=== PATIENT | female | born 1940 | race Caucasian/White ===

== ENCOUNTER 2020-03-03 16:40 | Emergency (ER) | payer MEDICARE, MEDICAID, SELFPAY ==
[2020-03-03 16:42] VITALS: BP 102/65; PULSE 64; RESP 15; TEMP 36.8; O2SAT 94; BMI 20.2
--- NOTE | 2020-03-03 16:43 | CT_ITS ---
STUDY: CT BRAIN WITHOUT CONTRAST REASON FOR EXAM: Female, 79 years old. Agitation RADIATION DOSAGE (If Supplied By Facility): CTDIvol = ( 60.81 ) mGy, DLP = ( 1044.28 ) mGycm TECHNIQUE: Transaxial CT imaging of the brain was performed without administration of intravenous contrast material. Individualized dose optimization techniques were used for this CT. COMPARISON: None. FINDINGS: There is no acute bleed or infarct. There are chronic ischemic and atrophic changes. The ventricles are normal in configuration. There is no hydrocephalus. The visualized paranasal sinuses are clear. The mastoid air cells are well aerated. There is no skull fracture. CT/Brain/Head without Contrast IMPRESSION: No acute intracranial abnormality. Chronic ischemic and atrophic changes. Electronically Signed: Alexy Tan, at 18:19 EDT Tel , Service support ,
--- NOTE | 2020-03-03 16:45 | EKG12_ITS ---
Test Reason : Blood Pressure : / mmHG Vent. Rate : 074 BPM Atrial Rate : 074 BPM P-R Int : 154 ms QRS Dur : 082 ms QT Int : 414 ms P-R-T Axes : 043 019 057 degrees QTc Int : 459 ms Normal sinus rhythm Normal ECG Confirmed by NAHOMI OWEN, JANAY ([id number]), research editor PATRICK WATT ([id number]) on 03/11/2020 12:13:56 PM Referred By: ES Confirmed By:SHAHLA COMER MD
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
--- NOTE | 2020-03-03 16:55 | CM.ED ---
Social Work Consult: Mental Health Informant: Dr. Vega Per nursing staff patient from [facility] and has been accepted at [facility] pending medical clearance. This psychologist social attempted to speak with patient in room. Patient is a poor historian. Patient currently not sure where patient is located. This psychologist social attempting to orient patient. Patient does not respond to questions. Patient pleasantly confused. Telephone call to Erica Cruz. Erica confirms that patient has been accepted at [facility] pending medical clearance. Erica reporting to have made direct referral to [facility] and Crisis is not involved in the case. Erica reports that patient was agitated today, yelling at staff, wondering, and attempted to elope. Erica reports that patient POA for health care is patient daughter, Tanja Fishman. Telephone call to Tanja Agrawal confirms to be POW for patient. Tanja is agreeable to transfer to [facility] for stabilization. Tanja reports to have been speaking with Nancy and is updated on current series of events. This psychologist social explaining referral process with Tanja. Tanja voicing understanding. Support and active listening provided. Updated medical team on above. Will continue to follow. PLAN: Complete placement to [facility] pending medical clearance. Selvin TORRES, DAVI
[2020-03-03 17:18] LABS: Absolute Lymphocyte Count 2.31 X10^3/uL (0.83-4.51); Basophil# 0.08 X10^3/uL; Eosinophil# 0.55 X10^3/uL; Eosinophils% 7.2 % (0-5); Hematocrit 37.7 % (37-47); Hemoglobin 11.9 g/dL (12.0-15.0); Lymphocyte # 2.31 X10^3/ul (4.0); Lymphocyte % 30.3 % (19-41); Mean Corp Hgb Conc 31.6 g/dL (32-36); Mean Corpuscular Hgb 28.4 pg (27.0-32.0); Mean Platelet Vol. 10.9 fl (6.2-12.0); Monocyte# 0.64 X10^3/uL; Monocyte% 8.4 % (0-10); NRBC Flagged by Analyzer 0 % (0-5); Neutrophil # 3.98 X10^3/uL (2.7-7.7); Neutrophil % 52.2 % (47-70); Platelet Count 195 K/mm3 (150-450); RBC Distribution Width CV 13.5 % (11.6-14.6); Red Blood Count 4.19 M/mm3 (4.2-5.4); White Blood Count 7.6 K/mm3 (4.4-11.0)
[2020-03-03 17:28] LABS: Bacteria 0 SEEN /hpf (None Seen); Red Blood Cells-Urine 0 SEEN /hpf (0-5); Squamous Epithelial Cells - UA 0 SEEN /hpf (5-10)
[2020-03-03 17:31] LABS: Color, Urine Yellow (Yellow); Glucose, Dipstick Normal (Normal); Ketone-Dipstick 5 mg/dl (Negative); Leukocyte Esterase-Dipstick 25 /ul (Negative); Nitrite-Dipstick Negative (Negative); Occult Blood-Urine 10 /ul (Negative); Protein-Dipstick 30 mg/dl (Negative); Specific Gravity, Urine 1.015 (1.002-1.030); Urine Clarity Clear (Clear); Urine Urobilinogen 1 mg/dl (Normal)
[2020-03-03 17:36] LABS: ALB/GLOB Ratio 1.1 RATIO (0.9-2.4); AST(SGOT) 15 U/L (15-37); Alanine Aminotransfer ALT/SGPT 13 U/L (13-56); Albumin, Serum 3.4 g/dL (3.2-5.0); Alkaline Phosphatase 79 U/L (45-117); Anion Gap 8 (5-15); BUN 38 mg/dL (7-18); BUN/Creat Ratio 38.4 RATIO (10-20); Calcium,Total 9.2 mg/dL (8.5-10.1); Chloride 106 mmol/L (98-107); Creatinine, Serum 0.99 mg/dL (0.55-1.02); EST Glomerular Filtration Rate 57 mL/min (>60); Est Glom Filt Rate - Afr Amer 69 mL/min (>60); Estimated Creatinine Clearance 38.86 ml/min; Globulin 3.2 g/dL (2.2-4.2); Glucose 85 mg/dL (74-106); Potassium 3.8 mmol/L (3.5-5.1); Protein, Total 6.6 g/dL (6.4-8.2); Sodium Level 144 mmol/L (136-145)
[2020-03-03 17:37] LABS: Urine Bilirubin Dipstick 1 mg/dL (Negative)
[2020-03-03 17:40] LABS: Mucous, Urine 1+ /hpf (<or=2+); White Blood Cells 0-5 SEEN /hpf (0-5)
--- NOTE | 2020-03-03 17:42 | RAD_ITS ---
STUDY: X-RAY CHEST REASON FOR EXAM: Female, 79 years old. Chest pain TECHNIQUE: Frontal view of the chest COMPARISON: None. FINDINGS: The lungs are hyperinflated, but clear. There are no pleural effusions. There is no pneumothorax. The heart is normal in size. There are old, healed left-sided rib fractures with deformity of the left chest wall. RAD/Chest 1 View (Portable) IMPRESSION: No acute thoracic pathology. Electronically Signed: Alexy Tan, at 18:23 EDT Tel , Service support ,
[2020-03-03 18:58] VITALS: RESP 16
--- NOTE | 2020-03-03 19:00 | ED.RN ---
CALLED CRISIS TO START THE MHC PROCESS WITH THEM, WAITING FOR A CALL BACK
[2020-03-03 19:19] VITALS: BP 123/76; PULSE 72; RESP 16; O2SAT 92
--- NOTE | 2020-03-03 19:20 | CM.ED ---
Social Work Telephone call to [facility]. [facility] confirming to have already accepted patient pending medical clearance. Clinical information faxed to Grzegorz Bustillo. [facility] to call this social work supervisor back with further instruction/questions. Selvin TORRES, DAVI
--- NOTE | 2020-03-03 19:21 | CM.ED ---
Social Work Telephone call to Crisis, clarified that this perinatal social worker is managing placement for patient. Selvin Damon MSW, HAKAN-S
[2020-03-03 20:00] VITALS: RESP 16
--- NOTE | 2020-03-03 20:28 | CM.ED ---
Social Work Telephone call from [facility]. Patient has been accepted by Dr. Walker. Patient to admit to room 112 bed 2. Nurse to call report to [phone]. Telephone call to patient daughter, Tanja. Updated on patient transfer. Tanja voicing approval of transfer. Tanja confirming that [facility] spoke with patient. Telephone call to [place], Updated on patient transfer to [facility]. Updated Medical team on above information, all agreeable to plan. Selvin Damon MSW, DAVI
== END 2020-03-03 21:00 ==
PROVIDERS: Emergency Provider Emergency Medicine; PCP Family Medicine
DX: R45.1 Restlessness and agitation (principal); F03.90 Unspecified dementia, unspecified severity, without behavioral disturbance, psychotic disturbance, mood disturbance, and anxiety
CPT/HCPCS: 70450; 71045; 80053; 81001; 85025; 87635; 93005; 99281; U0002

== ENCOUNTER 2020-03-17 18:43 | Emergency (ER) | payer MEDICARE, MEDICAID, SELFPAY ==
[2020-03-17 18:45] VITALS: BP 174/93; PULSE 75; RESP 18; TEMP 36.3; O2SAT 94; BMI 22.3
--- NOTE | 2020-03-17 18:53 | EKG12_ITS ---
Test Reason : Blood Pressure : / mmHG Vent. Rate : 073 BPM Atrial Rate : 073 BPM P-R Int : 154 ms QRS Dur : 084 ms QT Int : 404 ms P-R-T Axes : 038 030 056 degrees QTc Int : 445 ms Somatic/Motion Artifact Sinus rhythm with Confirmed by CATRACHITA OWEN, BELTRAN ([id number]), editor house organ VALENTINA LR ([id number]) on 03/19/2020 11:12:23 AM Referred By: JUANA Confirmed By:BELTRAN DOMÍNGUEZ MD
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
--- NOTE | 2020-03-17 19:00 | CM.ED ---
SOCIAL WORK Collaboration with Dr. Bustillo. Crisis to evaluate patient once medically cleared. Leigh Ann Castillo, INSIDE SALES REPRESENTATIVE, SUPERVISOR ORDNANCE TRUCK INSTALLATION
[2020-03-17 20:22] LABS: Absolute Lymphocyte Count 2.61 X10^3/uL (0.83-4.51); Absolute Neutrophil Count 5.7 X10^3/uL (2.0-7.7); Basophil# 0.08 X10^3/uL; Basophil% 0.9 % (0-1); Eosinophils% 3.2 % (0-5); Hematocrit 37.9 % (37-47); Hemoglobin 11.9 g/dL (12.0-15.0); Lymphocyte # 2.61 X10^3/ul (4.0); Lymphocyte % 27.8 % (19-41); Mean Corp Hgb Conc 31.4 g/dL (32-36); Mean Corpuscular Hgb 27.7 pg (27.0-32.0); Mean Corpuscular Volume 88.1 fL (81-99); Mean Platelet Vol. 10.8 fl (6.2-12.0); Monocyte# 0.69 X10^3/uL; Monocyte% 7.4 % (0-10); NRBC Flagged by Analyzer 0 % (0-5); Neutrophil # 5.65 X10^3/uL (2.7-7.7); Neutrophil % 60.2 % (47-70); Platelet Count 184 K/mm3 (150-450); RBC Distribution Width CV 14.4 % (11.6-14.6); RBC Distribution Width SD 45.8 fl (35.1-43.9); White Blood Count 9.4 K/mm3 (4.4-11.0)
[2020-03-17 20:26] LABS: Alcohol, Blood (Medical)-Serum < 3.0 mg/dL
[2020-03-17 20:29] LABS: ALB/GLOB Ratio 1.1 RATIO (0.9-2.4); AST(SGOT) 12 U/L (15-37); Alanine Aminotransfer ALT/SGPT 12 U/L (13-56); Albumin, Serum 3.6 g/dL (3.2-5.0); Alkaline Phosphatase 89 U/L (45-117); Anion Gap 4 (5-15); BUN 22 mg/dL (7-18); BUN/Creat Ratio 38.1 RATIO (10-20); Calcium,Total 9.7 mg/dL (8.5-10.1); Chloride 111 mmol/L (98-107); Creatinine, Serum 0.58 mg/dL (0.55-1.02); EST Glomerular Filtration Rate 106 mL/min (>60); Est Glom Filt Rate - Afr Amer 129 mL/min (>60); Estimated Creatinine Clearance 37.45 ml/min; Globulin 3.2 g/dL (2.2-4.2); Glucose 96 mg/dL (74-106); Potassium 3.9 mmol/L (3.5-5.1); Protein, Total 6.8 g/dL (6.4-8.2); Sodium Level 146 mmol/L (136-145)
[2020-03-17 20:31] LABS: Amphetamine Urine VISTA NEGATIVE (<1000 ng/mL); Barbiturate Urine VISTA NEGATIVE (< 200 ng/mL); Benzodiazepine Urine VISTA NEGATIVE (< 200 ng/mL); Cocaine Urine VISTA NEGATIVE (< 300 ng/mL); Ecstacy Urine VISTA NEGATIVE (< 500 ng/mL); Methadone Urine VISTA NEGATIVE (< 300 ng/mL); PCP Urine VISTA NEGATIVE (< 25 ng/mL); THC Urine VISTA NEGATIVE (< 50 ng/mL); Vista UDS pH Range 7
[2020-03-17 20:33] LABS: Color, Urine Yellow (Yellow); Glucose, Dipstick Normal (Normal); Ketone-Dipstick 5 mg/dl (Negative); Leukocyte Esterase-Dipstick 25 /ul (Negative); Mucous, Urine 0 SEEN /hpf (<or=2+); Nitrite-Dipstick Negative (Negative); Occult Blood-Urine 25 /ul (Negative); Protein-Dipstick Negative (Negative); Red Blood Cells-Urine 0 SEEN /hpf (0-5); Squamous Epithelial Cells - UA 0 SEEN /hpf (5-10); Urine Bilirubin Dipstick Negative (Negative); Urine Clarity Clear (Clear); Urine Urobilinogen Normal (Normal)
[2020-03-17 20:34] LABS: Bacteria RARE /hpf (None Seen); White Blood Cells 0-5 SEEN /hpf (0-5)
--- NOTE | 2020-03-17 21:17 | ED.RN ---
PAGED CRISIS TO START THE PROCESS OF SEEING THIS PT, WAITING FOR CALL BACK
--- NOTE | 2020-03-17 21:31 | ED.RN ---
SHANE FROM CRISIS CALLED BACK, REPORT FAXED TO THEIR OFFICE FAX.
[2020-03-17 21:39] VITALS: BP 148/71; PULSE 78; RESP 16; O2SAT 98
--- NOTE | 2020-03-17 23:27 | ED.RN ---
PT UP AND WALKING AROUND ROOM, RUMMAGING WITH ITEMS, FOOD AND SNACKS GIVEN. PT UNDRESSES, DIFFICULT TO REDIRECT AT TIME.
[2020-03-17] MEDS: MELATONIN 3 MG TABLET PO (23:30)
[2020-03-17] MEDS: Divalproex Sodium 250 MG Tablet PO (23:30)
[2020-03-17] MEDS: Memantine Hydrochloride 10 MG Tablet PO (23:30)
[2020-03-18] VITALS (13 sets, daily range): BP systolic 94–172; BP diastolic 64–93; PULSE 74–84; RESP 14–18; O2SAT 95–97
--- NOTE | 2020-03-18 07:54 | NURSING ---
PER ALHAJI, HENRIETTA. [facility] HAS PUT THEIR INTAKE ON HOLD UNTIL THEY TALK TO [place] THIS AM
[2020-03-18] MEDS: Divalproex Sodium 250 MG Tablet PO ×4 (08:57→21:06)
[2020-03-18] MEDS: Memantine Hydrochloride 5 MG Tablet PO (08:57)
--- NOTE | 2020-03-18 11:30 | CM.ED ---
SOCIAL WORK Assisting Crisis with inpatient psych placement for patient. Referral pending at [facility]. Call to [facility], spoke with Christine. Mateusz King, spoke with Nancy earlier and they would not provide information for patient as she is no longer a resident. Christine also reports has not been able to contact patient's daughter. This worker to assist. Call to Nancy, spoke with [employer]. Updated on the above. Worker reports will call [facility] to assist with placement needs. Call to patient's daughter, Tanja. Mateusz Agrawal, will follow up with [facility] this afternoon as she is a teacher and has class until 1:30p. Tanja reports will also be making phone calls to Nancy and the [facility] regarding care home placement after psychiatric stabilization. Call to Christine, with [facility] to update on the above. Christine reports is awaiting information from [facility] at this time and will continue to work on referral. Staff updated on the above. Leigh Ann Castillo, MICROSOFT EXCHANGE ARCHITECT, SANDWICH AND DRINK CART OPERATOR
--- NOTE | 2020-03-18 15:38 | CM.ED ---
SOCIAL WORK Call to [facility] to check on status of referral. Left message, awaiting returned call. Leigh Ann Castillo, EXPRESSIVE MUSIC THERAPIST, COMPUTERIZED TABLE CUTTER
--- NOTE | 2020-03-18 15:49 | CM.ED ---
SOCIAL WORK Received call back from Christine with [facility]. Per Christine, patient has been accepted pending an appropriate discharge plan from facility. Christine states is awaiting call back from Erica with [facility]. Christine reports will update this worker once able to accept patient. Pending placement at [facility] at this time. Leigh Ann Castillo, SOLID WASTE LANDFILL TECHNICIAN, KITCHEN AND BATH DESIGNER
--- NOTE | 2020-03-18 16:00 | CM.ED ---
SOCIAL WORK Attempted to contact Erica with [facility] to discuss placement. Left message, awaiting call back. Leigh Ann Castillo, CARDIOVASCULAR OR NURSE, CHIP DRIER
--- NOTE | 2020-03-18 16:30 | CM.ED ---
SOCIAL WORK Received call from Christine with [facility]. Per Christine, spoke with Erica and was informed [facility] is actively pursuing other nursing facilities for patient upon discharge from [facility]. Christine informed Ombudsman involved. Christine states informed Erica a form must be signed stating [facility] will accept patient back upon discharge if other senior care arrangements have not been made. [facility] waiting on signed form from [facility] at this time. Leigh Ann Castillo, LOAN ORIGINATOR, SENIOR NETWORK ADMINISTRATOR
--- NOTE | 2020-03-18 16:55 | CM.ED ---
SOCIAL WORK Call to [facility] to check on status of form per request of [facility], spoke with Sergio as Erica unavailable. Serigo states Erica is completing form. Leigh Ann Castillo, ACCOUNTANT CONTROLLER, SAS BI DEVELOPER
--- NOTE | 2020-03-18 17:40 | CM.ED ---
SOCIAL WORK Received call from Christine with [facility]. Christine reports form has still not been received from [facility] stating they will accept patient back upon discharge if other arrangements have not been established. Christine states called [facility] and they are to be faxing signed form to [facility] and will also fax form to ER. dental nurseYeni received call from [facility]. Nancy requesting fax number to fax over needed form for [facility]. Leigh Ann Castillo, DESPATCHING AND RECEIVING CLERK, JUNIOR PHP DEVELOPER
--- NOTE | 2020-03-18 18:32 | CM.ED ---
SOCIAL WORK Call from [facility]. Received accepting information as daughter gave approval for transfer and required form from [place] has been received. ETA for transport is 9:45p. Staff updated. Call to Crisis to update on the above. Plan: [facility] for [facility] D. Jonathan, INVESTIGATOR FRAUD, SAFETY PERSON
[2020-03-18] MEDS: Memantine Hydrochloride 10 MG Tablet PO (21:06)
[2020-03-18] MEDS: MELATONIN 3 MG TABLET PO (21:06)
== END 2020-03-18 22:40 ==
PROVIDERS: Emergency Provider Emergency Medicine; PCP Family Medicine
DX: F03.91 Unspecified dementia, unspecified severity, with behavioral disturbance (principal); K21.9 Gastro-esophageal reflux disease without esophagitis; Z79.899 Other long term (current) drug therapy
CPT/HCPCS: 80053; 80307; 80320; 81001; 85025; 87086; 87088; 87635; 93005; 99285; G0480; U0002

== ENCOUNTER 2020-06-05 20:21 | Emergency (ER) | payer MEDICARE, MEDICAID, SELFPAY ==
[2020-06-05 20:24] VITALS: BP 154/126; TEMP 36.6; BMI 20.1
--- NOTE | 2020-06-05 20:32 | ED.DCSUM_ITS ---
History of Present Illness Chief Complaint: Alt LOC Informant: Patient Narrative: 80-year-old female sent from her [facility] for increased agitation and restlessness. Apparently her baseline per other paperwork is confusion. She does have dementia and vascular dementia. There is no report of any falling. Patient is unable to give any history due to being a poor informant. She does not respond to any questions. While interviewing her she repeatedly tries to get out of the bed. Past Medical History - Allergies and Home Meds Allergies/Adverse Reactions: Allergies tetracycline Allergy (Verified 03/17/20 18:54) NEEDS FOLLOW-UP amoxicillin [From Augmentin] Adverse Reaction (Verified 03/17/20 18:54) NEEDS FOLLOW-UP clavulanic acid [From Augmentin] Adverse Reaction (Verified 03/17/20 18:54) NEEDS FOLLOW-UP erythromycin base Adverse Reaction (Verified 03/17/20 18:54) NEEDS FOLLOW-UP hydrocodone Adverse Reaction (Verified 03/17/20 18:54) NEEDS FOLLOW-UP levofloxacin [From Levaquin] Adverse Reaction (Verified 03/17/20 18:54) NEEDS FOLLOW-UP Primary Care Physician: Mir Cabrera MD [Primary Care Provider] - Past Medical History: - - Alzheimer's disease, vascular dementia, diabetes, depression, hyperlipidemia, anxiety, Surgical History: noncontributory Lives: Long-Term Smoking Status: Never smoker Alcohol: None Drugs: None Review of Systems ROS: Unable to Obtain Physical Exam Vital Signs/Narrative: Vital Signs Temp BP 06/05/20 20:24 97.8 F 154/126 H Inital Vital Signs reviewed: Yes General: Well nourished, No Acute Distress Head: Normocephalic, Atraumatic Eyes: Perrl, EOMI ENT: Moist mucous membranes, No rhinorrhea Cardiovascular: Regular rate, Regular rhythm Respiratory: No distress, CTA bilaterally Abdomen: Soft, Nontender Back: Nontender, Normal Inspection Extremities: Nontender, No edema Skin: Normal color, No rash. Negative for: Cyanosis, Diaphoresis Neurological: Alert, Confused Psychological: Agitated. Negative for: Tearful Diagnostic/Tx/Re-eval - Medical Decision Making Patient arrives with altered mental status and is agitated and difficult to control. She was given 20 of Geodon IM as well as Haldol 2 mg IM and 1 mg of Ativan. She still agitated. We will try to obtain blood and imaging. Likely she will need to go to geriatric psychiatric facility. Patient will be signed out to incoming ED doc for follow-up on blood work and imaging and ultimately placement. Impression: 1. Altered mental status ED Disposition - Plan for ED Patient: Referrals: Mir Cabrera MD [Primary Care Provider] -
--- NOTE | 2020-06-05 20:41 | RAD_ITS ---
STUDY: X-RAY CHEST REASON FOR EXAM: Female, 80 years old. increased agitation TECHNIQUE: Single AP portable view of the chest. COMPARISON: 03/03/2020. FINDINGS: There is hyperexpansion of the lungs, although the left lung is constricted by chest wall deformities related to numerous rib fractures, which are stable. No definite infiltrates or effusions. Normal size heart. Normal mediastinum and monty. Normal visualized pulmonary arteries. Normal visualized aortic arch and descending thoracic aorta. There are diffuse degenerative changes of the visualized thoracic spine. There is no demonstrated abnormality of the visualized soft tissue structures of the upper abdomen. RAD/Chest 1 View (Portable) IMPRESSION: No change or acute abnormality. Again seen are marked deformities of the left thoracic wall related to numerous old rib fractures. Electronically Signed: Kevin Ponce MD at 23:44 EST , Service support ,
[2020-06-05] MEDS: Ziprasidone IM 20 MG/ML VIAL IM (20:42)
--- NOTE | 2020-06-05 22:00 | ED.RN ---
pt still very restless requiring 1:1 observation, pt keeps trying to get out of bed, totally confused. notified the dr kraus given
[2020-06-05] MEDS: Haloperidol Lactate 5 MG/ML Vial 2 MG IV (22:02)
[2020-06-05] MEDS: LORazepam 2 MG/ML Syringe 1 MG IV (22:17)
--- NOTE | 2020-06-05 22:35 | CT_ITS ---
STUDY: CT BRAIN WITHOUT CONTRAST REASON FOR EXAM: Female, 80 years old. ALTERED MENTAL STATUS,increased agitation -- Hx:Alzheimer''s,Dementia,Diabetes RADIATION DOSAGE (If Supplied By Facility): CTDIvol = ( 44.99 ) mGy, DLP = ( 796.11 ) mGycm TECHNIQUE: Transaxial CT imaging of the brain was performed without administration of intravenous contrast material. Individualized dose optimization techniques were used for this CT. COMPARISON: 03/03/2020 FINDINGS: There is no definite acute abnormality. There is diffuse mild symmetric atrophy. There is atrophy of the posterior fossa structures. There is diffuse small vessel ischemic disease of the white matter. There is no definite acute infarct. There is no bleed. There is no gross mass, mass effect, or midline shift. There is no acute abnormality of the skull. No fractures. Grossly normal orbits. Grossly normal sinuses. CT/Brain/Head without Contrast IMPRESSION: Chronic age related changes and atrophy. No acute abnormality. No change since prior exam. Electronically Signed: Kevin Ponce MD at 23:46 EST , Service support ,
[2020-06-05 22:43] VITALS: PULSE 97; O2SAT 92
[2020-06-05 22:47] VITALS: BP 157/97; PULSE 96; RESP 20; TEMP 36.1; O2SAT 92
[2020-06-05 23:09] LABS: Bacteria 0 SEEN /hpf (None Seen); Mucous, Urine 0 SEEN /hpf (<or=2+); Squamous Epithelial Cells - UA 0 SEEN /hpf (5-10); White Blood Cells 0 SEEN /hpf (0-5)
[2020-06-05 23:10] LABS: Absolute Lymphocyte Count 1.96 X10^3/uL (0.83-4.51); Absolute Neutrophil Count 6.6 X10^3/uL (2.0-7.7); Basophil# 0.07 X10^3/uL; Basophil% 0.7 % (0-1); Eosinophil# 0.14 X10^3/uL; Eosinophils% 1.4 % (0-5); Hematocrit 40.4 % (37-47); Hemoglobin 12.8 g/dL (12.0-15.0); Lymphocyte # 1.96 X10^3/ul (4.0); Mean Corp Hgb Conc 31.7 g/dL (32-36); Mean Corpuscular Hgb 28.6 pg (27.0-32.0); Mean Corpuscular Volume 90.4 fL (81-99); Mean Platelet Vol. 10.6 fl (6.2-12.0); Monocyte# 0.94 X10^3/uL; Monocyte% 9.6 % (0-10); NRBC Flagged by Analyzer 0 % (0-5); Neutrophil # 6.62 X10^3/uL (2.7-7.7); Neutrophil % 67.8 % (47-70); Platelet Count 233 K/mm3 (150-450); RBC Distribution Width CV 13.6 % (11.6-14.6); RBC Distribution Width SD 45.6 fl (35.1-43.9); Red Blood Count 4.47 M/mm3 (4.2-5.4); White Blood Count 9.8 K/mm3 (4.4-11.0)
[2020-06-05 23:37] LABS: Color, Urine Yellow (Yellow); Glucose, Dipstick Normal (Normal); Ketone-Dipstick 15 mg/dl (Negative); Leukocyte Esterase-Dipstick Negative /ul (Negative); Nitrite-Dipstick Negative (Negative); Occult Blood-Urine 25 /ul (Negative); Protein-Dipstick 30 mg/dl (Negative); Urine Bilirubin Dipstick Negative (Negative); Urine Clarity Clear (Clear); Urine Urobilinogen 1 mg/dl (Normal)
[2020-06-05] MEDS: LORazepam 2 MG/ML Syringe 1 MG IM (23:38)
[2020-06-05 23:46] LABS: ALB/GLOB Ratio 0.9 RATIO (0.9-2.4); AST(SGOT) 46 U/L (15-37); Alanine Aminotransfer ALT/SGPT 18 U/L (13-56); Albumin, Serum 3.4 g/dL (3.2-5.0); Alkaline Phosphatase 84 U/L (45-117); Anion Gap 6 (5-15); BUN 35 mg/dL (7-18); BUN/Creat Ratio 42.1 RATIO (10-20); Calcium,Total 9.6 mg/dL (8.5-10.1); Chloride 113 mmol/L (98-107); Creatinine, Serum 0.83 mg/dL (0.55-1.02); EST Glomerular Filtration Rate 70 mL/min (>60); Est Glom Filt Rate - Afr Amer 84 mL/min (>60); Estimated Creatinine Clearance 45.29 ml/min; Globulin 3.6 g/dL (2.2-4.2); Glucose 124 mg/dL (74-106); Potassium 3.6 mmol/L (3.5-5.1); Sodium Level 150 mmol/L (136-145); Valproic Acid (Depakene) Level 25 ug/mL (50-100)
[2020-06-05 23:47] LABS: Red Blood Cells-Urine 0-5 SEEN /hpf (0-5)
--- NOTE | 2020-06-05 23:54 | EKG12_ITS ---
Test Reason : ALT LOC Blood Pressure : / mmHG Vent. Rate : 087 BPM Atrial Rate : 087 BPM P-R Int : 148 ms QRS Dur : 084 ms QT Int : 402 ms P-R-T Axes : 074 033 052 degrees QTc Int : 483 ms Normal sinus rhythm Nonspecific ST abnormality Abnormal ECG Confirmed by JOSSELINE OWEN, TOMASZ ([id number]), newspaper photo editor VALENTINA LR ([id number]) on 06/07/2020 1:11:00 PM Referred By: RAN Confirmed By:TOMASZ MANJARREZ MD
[2020-06-06] VITALS (11 sets, daily range): BP systolic 84–123; BP diastolic 53–83; PULSE 46–83; RESP 12–18; TEMP 35.8–36.1; O2SAT 91–95
[2020-06-06] MEDS: 0.45% Normal Saline 1,000 ML 200 ML IV ×2 (00:37→05:19)
--- NOTE | 2020-06-06 00:49 | ED.RN ---
additional information faxed to crisis per their request at this time
[2020-06-06 01:17] LABS: Alcohol, Blood (Medical)-Serum < 3.0 mg/dL; Amphetamine Urine VISTA NEGATIVE (<1000 ng/mL); Barbiturate Urine VISTA NEGATIVE (< 200 ng/mL); Benzodiazepine Urine VISTA NEGATIVE (< 200 ng/mL); Cocaine Urine VISTA NEGATIVE (< 300 ng/mL); Ecstacy Urine VISTA NEGATIVE (< 500 ng/mL); Methadone Urine VISTA NEGATIVE (< 300 ng/mL); PCP Urine VISTA NEGATIVE (< 25 ng/mL); THC Urine VISTA NEGATIVE (< 50 ng/mL); Vista UDS pH Range 6
--- NOTE | 2020-06-06 06:51 | ED.RN ---
Patient denied at [facility] at this time due to inability to provide any further care to the patient at this time
--- NOTE | 2020-06-06 06:53 | ED.RN ---
crisis made aware at this time they will attempt another facility at this time
--- NOTE | 2020-06-06 07:16 | ED.RN ---
Pt sleeping without distress.
--- NOTE | 2020-06-06 10:20 | NURSING ---
FAXED GENERATIONS PAPERS (2), EKG, COVID TEST, AND CT REPORT TO GENERATIONS
--- NOTE | 2020-06-06 10:25 | ED.RN ---
I spoke with the pt's daughter to gain permission to submit info for admission to [facility]. She was given a general description of the [place] [facility] and was verbally agreeable to the transfer. CT, EKG, voluntary admit and covid forms faxed to [facility].
--- NOTE | 2020-06-06 10:29 | ED.RN ---
Daughter wondered if Medicare covered this hospital. I informed her I was unable to determine this of which she verbalized understanding.
--- NOTE | 2020-06-06 11:04 | ED.RN ---
No personal belongings noted.
--- NOTE | 2020-06-06 11:15 | ED.RN ---
Pt sleeping. Depends and found to be dry. IV dressing removed and d/c'd without difficulty. Pt did not open eyes and was not combative. She has ot appeared agitated for me.
[2020-06-06] MEDS: LORazepam 2 MG/ML Syringe 1 MG IV (11:51)
--- NOTE | 2020-06-06 12:46 | ED.RN ---
Looked twice for personal articles. None in the room or bins.
== END 2020-06-06 12:10 ==
LOC: ED 21:14
PROVIDERS: Emergency Medicine; Emergency Provider Student in an Organized Health Care Education/Training Program; PCP Family Medicine
DX: R41.82 Altered mental status, unspecified (principal); R45.1 Restlessness and agitation; G30.9 Alzheimer's disease, unspecified; E11.9 Type 2 diabetes mellitus without complications; E78.5 Hyperlipidemia, unspecified; F02.80 Dementia in other diseases classified elsewhere, unspecified severity, without behavioral disturbance, psychotic disturbance, mood disturbance, and anxiety; Z88.0 Allergy status to penicillin; Z88.1 Allergy status to other antibiotic agents; Z88.5 Allergy status to narcotic agent
CPT/HCPCS: 70450; 71045; 80053; 80164; 80307; 81001; 82077; 85025; 87426; 93005; 96361; 96372; 96374; 96375; 96376; 99285; P9612; A4216; J3486